=== PATIENT | male | born 1975 | race Caucasian/White ===

== ENCOUNTER → 2018-10-02 | Outpatient (CLI) | payer OTHER ==
--- NOTE | 2018-10-02 09:45 | RADIOLOGY IMAGING REPORT ---
FACILITY: [facility] - [place] PATIENT NAME: Ghanshyam Lopez : 1975 MR: [id number] V: [id number] EXAM DATE: ORDERING PHYSICIAN: ARNOLDO HEADLEY TECHNOLOGIST: Location: [facility] - [place] Patient: Ghanshyam Lopez : 1975 Visit/Account:[id number] Date of Sevice: 10/02/2018 LIVER HISTORY: Right upper quadrant tenderness COMPARISON: None FINDINGS: Gallbladder: Unremarkable; no stones or sludge. Liver: Liver is enlarged measuring 20.3 cm in length. There is increased echogenicity throughout the liver which can be seen with fatty infiltration or other infiltrative process Common duct: Normal, 3.6 mm diameter. Pancreas: Not well seen due to overlying bowel gas Right kidney: The right kidney was not ideally seen due to patient's body habitus. There is a lobula r contour to the right kidney. There is a suggestion of a possible anterior cortical mass measuring approximately 2.7 cm in diameter cm in diameter. The right kidney measures 9.1 cm in length Upper abdominal aorta and IVC: Patent. Ascites: None visualized. IMPRESSION: The liver is enlarged measuring 20.3 cm in length Increased echogenicity throughout liver which can be seen with fatty infiltration or other infiltrati ve process Pancreas not well seen due to overlying bowel gas The right kidney was not ideally seen due to patient's body habitus. There is a lobular contour to t he right kidney with suggestion of a possible anterior cortical mass. This could be further evaluate d with CT or MR depending upon the degree of clinical concern Report Dictated By: Shavon Davis MD at 10/02/2018 9:37 AM Report E-Signed By: Shavon Davis MD at 10/02/2018 9:40 AM WSN:[email or web address]
== END ==
LOC: US 02:25
PROVIDERS: ATTEND Family Medicine
DX: K76.0 Fatty (change of) liver, not elsewhere classified (principal); R93.9 Diagnostic imaging inconclusive due to excess body fat of patient
CPT/HCPCS: 76705

== ENCOUNTER 2018-10-24 09:36 | Outpatient (RCR) | payer OTHER | END 2018-11-08 | LOC: LAB 09:36 | PROVIDERS: ATTEND Family Medicine | DX: R10.811 Right upper quadrant abdominal tenderness (principal) | CPT/HCPCS: 36415; 82565 ==

== ENCOUNTER → 2018-10-25 | Outpatient (CLI) | payer OTHER ==
[~2018-10-25] MED LIST: IOPAMIDOL 76% 150 ML INFUS BTL 150 ML ONE
--- NOTE | 2018-10-25 15:14 | RADIOLOGY IMAGING REPORT ---
FACILITY: [facility] - [place], [place] PATIENT NAME: Ghanshyam Lopez : 1975 MR: [id number] V: [id number] EXAM DATE: ORDERING PHYSICIAN: ARNOLDO HEADLEY TECHNOLOGIST: Location: [facility] - [place] Patient: Ghanshyam Lopez : 1975 Visit/Account:[id number] Date of Sevice: 10/25/2018 EXAMINATION: CT abdomen with IV contrast CT pelvis with IV contrast HISTORY: Possible kidney mass. TECHNIQUE: Spiral scan was through the abdomen and pelvis during injection of nonionic iodinated in travenous contrast. Sagittal and coronal reformatted images are also submitted. One of the following dose optimization techniques was utilized in the performance of this exam: Autom ated exposure control; adjustment of the mA and/or kV according to the patient's size; or use of an i terative reconstruction technique. Specific details can be referenced in the facility's radiology C T exam operational policy. CONTRAST: 75 mL of IV [id number] COMPARISON: Right upper quadrant ultrasound dated 10/02/2018. FINDINGS: Lower chest: Mild patchy opacities in the lung bases measuring up to 2.2 x 1.6 cm on the right. Liver / biliary: Hepatic steatosis. Pancreas: Negative. Spleen: Negative. Adrenal glands: Negative. Kidneys: 1.2 cm hypodensity in the anterior right kidney with a density of 34 Hounsfield units (serie s 2, image 73). Bilateral punctate nonobstructing stones. Subcentimeter exophytic cyst extending la terally from the upper left kidney. Pelvic structures: Negative. Bowel: Negative. Peritoneum / retroperitoneum / mesenteries: Negative. Vessels: Negative. Lymph nodes: Negative. Musculoskeletal / Body wall: Small bilateral fat-containing inguinal hernias. Small fat-containing u mbilical hernia. Mild degenerative changes in the spine. Partially imaged right hip arthroplasty. Mild left hip osteoarthritis. IMPRESSION: 1. 1.2 cm indeterminate lesion in the anterior right kidney with a density of 34 Hounsfield units (s eries 2, image 73). Follow-up renal mass protocol CT or MRI with IV contrast in 6 months is recommen ded. 2. Bilateral punctate nonobstructing kidney stones. 3. Mild patchy opacities in the lung bases measuring up to 2.2 x 1.6 cm on the right. This is proba babatunde scarring or atelectasis. Follow-up chest CT in 3-6 months is recommended. 4. Hepatic steatosis. 5. Small bilateral fat-containing inguinal hernias. Small fat-containing umbilical hernia. Report Dictated By: Gregory Helton MD at 10/25/2018 2:28 PM Report E-Signed By: Gregory Helton MD at 10/25/2018 3:09 PM WSN:[email or web address]
== END ==
LOC: CT 01:05
PROVIDERS: ATTEND Family Medicine
DX: N20.0 Calculus of kidney (principal); N28.89 Other specified disorders of kidney and ureter; R91.8 Other nonspecific abnormal finding of lung field; K40.20 Bilateral inguinal hernia, without obstruction or gangrene, not specified as recurrent; K42.9 Umbilical hernia without obstruction or gangrene; K76.0 Fatty (change of) liver, not elsewhere classified
CPT/HCPCS: 74177; Q9967